=== PATIENT | male | born 1955 | race Caucasian/White ===

== ENCOUNTER 2024-03-19 09:12 | Inpatient (IN) | payer MEDICARE, MEDICAID, OTHER ==
[2024-03-19] MEDS ORDERED: Boostrix 0.5 ML (Tdap) VIAL (>/=7 yrs of age) ONE ×2 (09:20→10:19)
[2024-03-19] MEDS ORDERED: NOREPINEPHRINE 8 MG/250 ML-D5W 250 ML ONE (09:23)
[2024-03-19 09:39] LABS: #Basophils 0.12 10x3/uL (0.0-0.2); %Basophils 0.7 % (0.0-1.0); %Eosinophils 1.8 % (0.0-10.0); %Lymphocytes 11.9 % (21.0-51.0); %Monocytes 7.3 % (0.0-10.0); %Neutrophils 76.9 % (42.0-75.0); Hematocrit 33.1 % (42.0-52.0); Hemoglobin 10.7 g/dL (14.0-18.0); Mean Corpuscular HGB CONC 32.3 g/dL (32.0-36.0); Mean Corpuscular Hemoglobin 30.4 pg (27.0-31.0); Mean Platelet Volume 9.4 fL (7.4-10.4); Platelet Count 370 10x3/uL (130-400); RBC Distribution Width 17.2 % (11.5-14.5); Red Blood Cell (RBC) Count 3.52 mill/uL (4.70-6.10)
[2024-03-19 09:51] LABS: Bilirubin Negative (Negative); Blood, Urine Negative (Negative); Clarity Turbid (Clear); Glucose, Urine (Dipstick) Normal (Negative); Ketone, Urine Negative (Negative); Leukocyte 250 Leu/uL (Negative); Nitrite 2+ (Negative); Protein, Urine (Dipstick) 30 mg/dL (Neg-Trace); RBC/HPF 0-3 HPF (0-3); Specific Gravity, Urine 1.017 (1.002-1.036); Urobilinogen Normal mg/dL (Less than 2); pH, Urine 6.5 (5.0-9.0)
[2024-03-19 09:55] LABS: ALT (SGPT) 24 U/L (8-55); AST (SGOT) 38 U/L (5-34); Alkaline Phosphatase 73 U/L (40-110); Anion Gap 15 mmol/L (10-20); BUN (Urea Nitrogen) 21 mg/dL (8.4-25.7); Bilirubin, Total 0.5 mg/dL (0.2-1.2); Calc. Creatinine Clearance 0 mL/min (70-130); Calcium 9.2 mg/dL (7.8-10.44); Carbon Dioxide 21 mmol/L (23-31); Chloride 109 mmol/L (98-107); Estimated GFR 61; Globulin 3.7 g/dL (2.4-3.5); Glucose 164 mg/dL (80-115); Potassium 4.2 mmol/L (3.5-5.1); Protein, Total 6.7 g/dL (5.8-8.1); Sodium 141 mmol/L (136-145)
[2024-03-19 09:58] LABS: Prothrombin Time 12.8 sec (12.0-14.7)
[2024-03-19 10:00] LABS: PTT 22.6 sec (22.9-36.1)
[2024-03-19 10:06] LABS: Squamous Epithelial 0-3 HPF (0-3); WBC/HPF 21-50 HPF (0-3)
[2024-03-19 10:07] LABS: Bacteria/HPF 3+ HPF (None Seen); Transitional Epithelial 0-3 HPF (None Seen)
[2024-03-19] MEDS ORDERED: Ondansetron PF 4 MG/2 ML Vial ONE (10:26)
[2024-03-19] MEDS ORDERED: Morphine 4 MG/ML VIAL ONE (10:26)
[2024-03-19] MEDS ORDERED: CEFAZOLIN 2 GM in Sodium Chloride 0.9% 100 ML IVPB SCH (10:30)
[2024-03-19] MEDS ORDERED: Ondansetron PF 4 MG/2 ML Vial IVP PRN (11:03)
[2024-03-19] MEDS ORDERED: Ipratropium/Albuterol 3 ML NEB NEB PRN (11:03)
[2024-03-19 12:14] VITALS: BMI 20.5
[2024-03-19] MEDS ORDERED: Iopamidol-370 76% 500 ML MDV (1 ML CHARGE) ONE (13:22)
[2024-03-19] MEDS ORDERED: fentaNYL PF 100 MCG/2 ML SYRINGE ONE (16:48)
[2024-03-19] MEDS ORDERED: PROPOFOL 20 ML ONE (16:48)
[2024-03-19] MEDS ORDERED: Lidocaine 1% PF 5 ML VIAL ONE (16:51)
[2024-03-19] MEDS ORDERED: SUCCINYLCHOLINE/SOD CL,ISO/PF 200 MG/10 ML SYRINGE FS ONE ×2 (16:59→17:40)
[2024-03-19] MEDS ORDERED: Sterile Water 20 ML ONE (17:49)
[2024-03-19] MEDS ORDERED: CEFAZOLIN 1 GM VIAL ONE (17:49)
[2024-03-19] MEDS ORDERED: PHENYLEPHRINE-NS 100 MCG/ML 10 ML SYRINGE ONE ×2 (17:53→19:57)
[2024-03-19] MEDS ORDERED: Rocuronium Bromide 10 MG/ML (10ML VIAL) ONE (17:56)
[2024-03-19] MEDS ORDERED: NEOSTIGMINE 3 MG/3 ML SYR 3 MG/3 ML SYRINGE ONE (19:30)
[2024-03-19] MEDS ORDERED: Glycopyrrolate 0.2 MG/ML 5 ML SYRINGE ONE (19:30)
[2024-03-19] MEDS ORDERED: fentaNYL 50 mcg/mL 1 mL Vial ONE ×3 (19:34→21:33)
[2024-03-19] MEDS ORDERED: HYDROmorphone 2 MG/ML VIAL ONE (19:57)
[2024-03-19] MEDS: Sodium Chloride 0.9% 1,000 ML IV SCH (23:00)
[2024-03-19] MEDS ORDERED: Electrolyte Replacement Protocol 1 EACH FS PRN (23:01)
[2024-03-19] MEDS: Acetaminophen 325 MG TAB PO SCH (23:57)
[2024-03-20] MEDS: Ketorolac Tromethamine 30 MG (1 mL) VIAL IVP SCH ×2 (00:03→14:12)
[2024-03-20] MEDS: Thiamine HCl 200 MG/2 ML VIAL SLOW IVP SCH ×3 (00:05→22:23)
[2024-03-20] MEDS: Famotidine/PF 20 mg/2ml Vial SLOW IVP SCH (00:24)
[2024-03-20] MEDS: Ipratropium/Albuterol 3 ML NEB NEB SCH ×2 (02:27→10:27)
[2024-03-20] MEDS: CEFAZOLIN 2 GM in Sodium Chloride 0.9% 100 ML IVPB SCH (02:43)
[2024-03-20] MEDS: Mometasone 200 MCG/Formoterol 5 MCG 120 PUFF INHALER INH SCH (06:56)
[2024-03-20] MEDS ORDERED: traMADol HCl 50 MG TAB PO PRN (07:13)
[2024-03-20 07:14] LABS: Phosphorus 3.4 mg/dL (2.3-4.7)
[2024-03-20 07:25] LABS: Anion Gap 12 mmol/L (10-20); BUN (Urea Nitrogen) 24 mg/dL (8.4-25.7); Calc. Creatinine Clearance 45 mL/min (70-130); Calcium 7.8 mg/dL (7.8-10.44); Carbon Dioxide 22 mmol/L (23-31); Chloride 117 mmol/L (98-107); Estimated GFR 54; Glucose 83 mg/dL (80-115); Magnesium 1.6 mg/dL (1.6-2.6); Potassium 4.8 mmol/L (3.5-5.1); Sodium 146 mmol/L (136-145)
[2024-03-20] MEDS: Enoxaparin 40 MG (0.4 mL) SYRINGE SC SCH (07:41)
[2024-03-20] MEDS: Magnesium 2 GM/50 ML(in water) 2 GM in Premix 1 BAG IVPB SCH (07:41)
[2024-03-20 07:46] LABS: #Basophils 0.05 10x3/uL (0.0-0.2); %Basophils 0.5 % (0.0-1.0); %Eosinophils 1.1 % (0.0-10.0); %Lymphocytes 20.9 % (21.0-51.0); %Monocytes 17.1 % (0.0-10.0); %Neutrophils 60.2 % (42.0-75.0); Hematocrit 22.8 % (42.0-52.0); Hemoglobin 7.1 g/dL (14.0-18.0); Mean Corpuscular HGB CONC 31.1 g/dL (32.0-36.0); Mean Corpuscular Hemoglobin 30.3 pg (27.0-31.0); Mean Corpuscular Volume 97.4 fL (78.0-98.0); Mean Platelet Volume 9.8 fL (7.4-10.4); Platelet Count 268 10x3/uL (130-400); RBC Distribution Width 17.4 % (11.5-14.5); Red Blood Cell (RBC) Count 2.34 mill/uL (4.70-6.10)
[2024-03-20 08:47] LABS: #Basophils 0.04 10x3/uL (0.0-0.2); %Basophils 0.4 % (0.0-1.0); %Eosinophils 0.9 % (0.0-10.0); %Lymphocytes 20.2 % (21.0-51.0); %Neutrophils 60.2 % (42.0-75.0); Hematocrit 22.9 % (42.0-52.0); Mean Corpuscular HGB CONC 30.6 g/dL (32.0-36.0); Mean Corpuscular Hemoglobin 31.7 pg (27.0-31.0); Mean Corpuscular Volume 103.6 fL (78.0-98.0); Mean Platelet Volume 9.9 fL (7.4-10.4); Platelet Count 255 10x3/uL (130-400); RBC Distribution Width 17.5 % (11.5-14.5); Red Blood Cell (RBC) Count 2.21 mill/uL (4.70-6.10)
[2024-03-20] MEDS: Morphine 2 MG/ML VIAL SLOW IVP PRN (09:23)
[2024-03-20] MEDS ORDERED: Ondansetron ODT 4 MG TAB PO PRN (09:41)
[2024-03-20] MEDS ORDERED: Lorazepam 1 MG TAB PO PRN (09:41)
[2024-03-20] MEDS ORDERED: Electrolyte Replacement Protocol 1 EACH FS SCH (09:45)
[2024-03-20] MEDS ORDERED: Electrolyte Replacement Protocol FS PRN (11:30)
[2024-03-20] MEDS: Lorazepam 2 MG/ML VIAL IM PRN (11:46)
[2024-03-20] MEDS ORDERED: Ipratropium/Albuterol 3 ML NEB NEB SCH (12:30)
[2024-03-20] MEDS: Pregabalin 50 MG CAP PO SCH (12:35)
[2024-03-20] MEDS: Sodium Chloride 0.9% 1,000 ML IV SCH (12:35)
[2024-03-20] MEDS: Lorazepam 1 MG TAB PO SCH (12:35)
[2024-03-20] MEDS: Famotidine 20 MG TAB PO SCH (12:35)
[2024-03-20] MEDS: traMADol HCl 50 MG TAB PO SCH (14:45)
[2024-03-20] MEDS: LevoFLOXacin 500 mg/D5W 500 MG in Premix 1 BAG IVPB SCH (14:46)
[2024-03-20] MEDS ORDERED: diphenhydrAMINE 50 MG/ML VIAL IM PRN (14:51)
[2024-03-20] MEDS ORDERED: HYDROmorphone/PF 10 MG in Sodium Chloride 0.9% 99 ML IV PRN (14:51)
[2024-03-20] MEDS ORDERED: Naloxone HCl 0.4 mg/ml Vial IV PRN (14:51)
[2024-03-20] MEDS ORDERED: Promethazine HCl 25 MG/ML VIAL IM PRN (14:51)
[2024-03-20] MEDS ORDERED: Ondansetron PF 4 MG/2 ML Vial IVP PRN (14:51)
[2024-03-20] MEDS ORDERED: Communication Order-Pharmacy FS SCH (15:00)
[2024-03-20] MEDS ORDERED: HYDROmorphone/PF 10 MG in Sodium Chloride 0.9% 99 ML IVPB PRN (15:00)
[2024-03-20] MEDS: Lidocaine 4% Patch TD SCH (15:49)
[2024-03-20] MEDS: Morphine 4 MG/ML VIAL SLOW IVP SCH (17:48)
[2024-03-20] MEDS ORDERED: Lorazepam 2 MG/ML VIAL SLOW IVP PRN (18:00)
[2024-03-20] MEDS: Transdermal Patch Removal TOP SCH (23:56)
[2024-03-21] MEDS: Lorazepam 2 MG/ML VIAL IM PRN (03:38)
[2024-03-21 06:06] LABS: #Basophils 0.06 10x3/uL (0.0-0.2); %Basophils 0.4 % (0.0-1.0); %Eosinophils 0.4 % (0.0-10.0); %Lymphocytes 16.8 % (21.0-51.0); %Monocytes 14.6 % (0.0-10.0); %Neutrophils 67.4 % (42.0-75.0); Hematocrit 21.6 % (42.0-52.0); Mean Corpuscular HGB CONC 32.4 g/dL (32.0-36.0); Mean Corpuscular Hemoglobin 30.8 pg (27.0-31.0); Mean Corpuscular Volume 95.2 fL (78.0-98.0); Mean Platelet Volume 10.3 fL (7.4-10.4); Platelet Count 215 10x3/uL (130-400); RBC Distribution Width 18.6 % (11.5-14.5); Red Blood Cell (RBC) Count 2.27 mill/uL (4.70-6.10)
[2024-03-21 06:24] LABS: Anion Gap 13 mmol/L (10-20); BUN (Urea Nitrogen) 30 mg/dL (8.4-25.7); Calc. Creatinine Clearance 46 mL/min (70-130); Calcium 7.4 mg/dL (7.8-10.44); Carbon Dioxide 18 mmol/L (23-31); Chloride 118 mmol/L (98-107); Estimated GFR 55; Glucose 116 mg/dL (80-115); Magnesium 2.1 mg/dL (1.6-2.6); Potassium 4.6 mmol/L (3.5-5.1); Sodium 144 mmol/L (136-145)
[2024-03-21] MEDS ORDERED: Folic Acid 5 MG/ML MDV SC SCH (09:00)
[2024-03-21] MEDS ORDERED: Folic Acid 1 MG TAB PO SCH (09:00)
[2024-03-21] MEDS ORDERED: Lorazepam 1 MG TAB PO PRN (09:41)
[2024-03-21] MEDS: Multivit, Therapeutic 1 TAB PO SCH (09:42)
[2024-03-21] MEDS: Folic Acid 0.4 MG in Syringe 0 ML SC SCH (09:49)
[2024-03-21] MEDS ORDERED: traMADol HCl 50 MG TAB PO PRN (12:01)
[2024-03-21] MEDS: LevoFLOXacin 500 mg/D5W 500 MG in Premix 1 BAG IVPB SCH (12:04)
[2024-03-21] MEDS: Nicotine 14 MG PATCH TD SCH (16:07)
[2024-03-21] MEDS ORDERED: traMADol HCl 50 MG TAB PO SCH (18:00)
[2024-03-21] MEDS: traMADol HCl 50 MG TAB PO SCH (18:50)
[2024-03-21] MEDS: Sodium Chloride 0.9% 1,000 ML IV SCH (18:51)
[2024-03-21 19:13] LABS: Amphetamine Detected (NotDetected); Barbiturates Screen Not Detected (NotDetected); Benzodiazepine Screen Detected (NotDetected); Cocaine Metabolite Screen Not Detected (NotDetected); Methadone Not Detected (NotDetected); Methamphetamine Detected (NotDetected); Opiate Screen Detected (NotDetected); Oxycodone Screen Not Detected (NotDetected); Phencyclidine (PCP) Not Detected (NotDetected); THC/Cannabinoid Screen Not Detected (NotDetected); Tricyclic Screen Not Detected (NotDetected)
[2024-03-21] MEDS: ALPRAZolam 0.25 MG TAB PO SCH (20:13)
[2024-03-22] MEDS: traMADol HCl 50 MG TAB PO SCH (05:39)
[2024-03-22 07:13] LABS: Hematocrit 25.2 % (42.0-52.0); Hemoglobin 8.7 g/dL (14.0-18.0); Platelet Count 220 10x3/uL (130-400)
[2024-03-22 08:02] LABS: Anion Gap 15 mmol/L (10-20); BUN (Urea Nitrogen) 26 mg/dL (8.4-25.7); Calc. Creatinine Clearance 64 mL/min (70-130); Calcium 8.4 mg/dL (7.8-10.44); Carbon Dioxide 17 mmol/L (23-31); Chloride 119 mmol/L (98-107); Estimated GFR 82; Glucose 106 mg/dL (80-115); Potassium 4.3 mmol/L (3.5-5.1); Sodium 147 mmol/L (136-145)
[2024-03-22] MEDS: Folic Acid 1 MG TAB PO SCH (09:27)
[2024-03-22] MEDS ORDERED: Lorazepam 1 MG TAB PO PRN (09:41)
[2024-03-22] MEDS ORDERED: Lorazepam 0.5 MG TAB PO SCH (09:45)
[2024-03-22] MEDS ORDERED: Labetalol HCl 100 MG/20 ML VIAL SLOW IVP PRN (13:19)
[2024-03-22] MEDS: Morphine 2 MG/ML VIAL SLOW IVP PRN (13:58)
[2024-03-22] MEDS: Dextrose 5% in Water 1,000 ML IV SCH (13:58)
[2024-03-22] MEDS: Famotidine 20 MG TAB PO SCH (21:31)
[2024-03-22] MEDS: Thiamine 100 MG TAB PO SCH (21:31)
[2024-03-23] MEDS: hydrALAZINE 20 MG/ML VIAL SLOW IVP PRN (06:09)
[2024-03-23 07:01] LABS: #Basophils 0.06 10x3/uL (0.0-0.2); %Basophils 0.4 % (0.0-1.0); %Eosinophils 4.6 % (0.0-10.0); %Monocytes 12.1 % (0.0-10.0); %Neutrophils 68.6 % (42.0-75.0); Hematocrit 24.9 % (42.0-52.0); Hemoglobin 8.5 g/dL (14.0-18.0); Mean Corpuscular HGB CONC 34.1 g/dL (32.0-36.0); Mean Corpuscular Hemoglobin 29.8 pg (27.0-31.0); Mean Corpuscular Volume 87.4 fL (78.0-98.0); Mean Platelet Volume 10.7 fL (7.4-10.4); Platelet Count 298 10x3/uL (130-400); RBC Distribution Width 17.5 % (11.5-14.5); Red Blood Cell (RBC) Count 2.85 mill/uL (4.70-6.10)
[2024-03-23 07:23] LABS: Anion Gap 12 mmol/L (10-20); BUN (Urea Nitrogen) 17 mg/dL (8.4-25.7); Calc. Creatinine Clearance 80 mL/min (70-130); Calcium 8.2 mg/dL (7.8-10.44); Carbon Dioxide 21 mmol/L (23-31); Chloride 111 mmol/L (98-107); Estimated GFR 97; Glucose 126 mg/dL (80-115); Potassium 3.7 mmol/L (3.5-5.1); Sodium 140 mmol/L (136-145)
[2024-03-23] MEDS: Lisinopril 20 MG TAB PO SCH (09:24)
[2024-03-23] MEDS: Hydrochlorothiazide 25 MG TAB PO SCH (09:24)
[2024-03-23] MEDS: Enoxaparin 40 MG (0.4 mL) SYRINGE SC SCH (09:27)
[2024-03-23] MEDS ORDERED: Lorazepam 0.5 MG TAB PO PRN (09:41)
[2024-03-23] MEDS ORDERED: Thiamine 100 MG TAB PO SCH (09:45)
[2024-03-23] MEDS: Furosemide 40 MG (4 mL) VIAL SLOW IVP SCH ×2 (09:52→18:18)
[2024-03-23] MEDS ORDERED: Morphine 2 MG/ML VIAL SLOW IVP PRN (13:06)
[2024-03-23 17:27] LABS: Anion Gap 13 mmol/L (10-20); BUN (Urea Nitrogen) 17 mg/dL (8.4-25.7); Calc. Creatinine Clearance 81 mL/min (70-130); Calcium 8.4 mg/dL (7.8-10.44); Carbon Dioxide 20 mmol/L (23-31); Chloride 109 mmol/L (98-107); Estimated GFR 97; Glucose 115 mg/dL (80-115); Potassium 4.1 mmol/L (3.5-5.1); Sodium 138 mmol/L (136-145)
[2024-03-23 17:28] LABS: Magnesium 1.6 mg/dL (1.6-2.6); Phosphorus 2.4 mg/dL (2.3-4.7)
[2024-03-23] MEDS: Magnesium Sulfate In Water 4 GM in Premix 1 BAG IVPB SCH (18:13)
[2024-03-23] MEDS: Potassium Chloride 20 MEQ TAB PO SCH (18:18)
[2024-03-23] MEDS ORDERED: Magnesium 2 GM/50 ML(in water) 4 GM in Premix 1 BAG IVPB SCH (19:00)
[2024-03-23] MEDS ORDERED: Furosemide 40 MG (4 mL) VIAL SLOW IVP SCH (19:00)
[2024-03-23] MEDS: Tamsulosin HCl 0.4 MG CAP PO SCH (21:55)
[2024-03-23] MEDS: diphenhydrAMINE 25 MG CAP PO PRN (23:48)
[2024-03-24 05:09] LABS: #Basophils 0.08 10x3/uL (0.0-0.2); %Basophils 0.5 % (0.0-1.0); %Eosinophils 4.6 % (0.0-10.0); %Lymphocytes 20.1 % (21.0-51.0); %Monocytes 13.5 % (0.0-10.0); %Neutrophils 58.9 % (42.0-75.0); Hematocrit 26.3 % (42.0-52.0); Hemoglobin 8.7 g/dL (14.0-18.0); Mean Corpuscular HGB CONC 33.1 g/dL (32.0-36.0); Mean Corpuscular Hemoglobin 30.4 pg (27.0-31.0); Mean Platelet Volume 10.2 fL (7.4-10.4); Platelet Count 363 10x3/uL (130-400); RBC Distribution Width 17.4 % (11.5-14.5); Red Blood Cell (RBC) Count 2.86 mill/uL (4.70-6.10)
[2024-03-24 05:30] LABS: Anion Gap 13 mmol/L (10-20); BUN (Urea Nitrogen) 21 mg/dL (8.4-25.7); Calc. Creatinine Clearance 66 mL/min (70-130); Calcium 8.5 mg/dL (7.8-10.44); Carbon Dioxide 21 mmol/L (23-31); Chloride 107 mmol/L (98-107); Estimated GFR 86; Glucose 95 mg/dL (80-115); Magnesium 2.4 mg/dL (1.6-2.6); Potassium 4.1 mmol/L (3.5-5.1); Sodium 137 mmol/L (136-145)
[2024-03-24] MEDS: Lisinopril 20 MG TAB PO SCH (08:57)
[2024-03-24] MEDS: LevoFLOXacin 750 MG TAB PO SCH (11:58)
[2024-03-24 16:14] LABS: QuantiFERON-TB Gold Plus Negative (Negative)
[2024-03-25] MEDS: Polyethylene Glycol 3350 17 GM Packet PO SCH (09:43)
[2024-03-25] MEDS: Senokot S 8.6-50 MG TAB PO SCH (09:44)
[2024-03-25] MEDS ORDERED: Iopamidol-370 76% 500 ML MDV (1 ML CHARGE) ONE (11:09)
[2024-03-25] MEDS: Ibuprofen 600 MG TAB PO PRN (20:19)
[2024-03-25] MEDS: Lisinopril 5 MG TAB PO SCH (20:20)
[2024-03-25] MEDS: ALPRAZolam 0.25 MG TAB PO SCH (20:20)
[2024-03-26] MEDS: Ipratropium/Albuterol 3 ML NEB NEB PRN (21:11)
[2024-03-27] MEDS: diphenhydrAMINE 50 MG/ML VIAL IVP PRN (01:57)
[2024-03-27] MEDS: Metoprolol Tartrate 25 MG TAB PO SCH (08:51)
[2024-03-28 06:08] LABS: Hematocrit 29.4 % (42.0-52.0); Hemoglobin 9.6 g/dL (14.0-18.0); Mean Corpuscular HGB CONC 32.7 g/dL (32.0-36.0); Mean Corpuscular Hemoglobin 30.3 pg (27.0-31.0); Mean Corpuscular Volume 92.7 fL (78.0-98.0); Mean Platelet Volume 9.9 fL (7.4-10.4); Platelet Count 666 10x3/uL (130-400); RBC Distribution Width 17.4 % (11.5-14.5); Red Blood Cell (RBC) Count 3.17 mill/uL (4.70-6.10)
[2024-03-28 06:28] LABS: Anion Gap 17 mmol/L (10-20); BUN (Urea Nitrogen) 50 mg/dL (8.4-25.7); Calc. Creatinine Clearance 58 mL/min (70-130); Calcium 9.2 mg/dL (7.8-10.44); Carbon Dioxide 21 mmol/L (23-31); Chloride 108 mmol/L (98-107); Estimated GFR 69; Glucose 101 mg/dL (80-115); Potassium 4.6 mmol/L (3.5-5.1); Sodium 141 mmol/L (136-145)
[2024-03-28 06:33] LABS: Anisocytosis SLIGHT = 6-15 cells HPF (0-5); Eosinophils 7 % (0-10); Lymphocytes 5 % (21-51); Monocytes 17 % (0-10); Neutrophil 70 % (42-75); Platelet Adequacy Comment Platelets Increased; Polychromasia SLIGHT = 2-3 cells HPF (0-2)
[2024-03-28] MEDS ORDERED: LevoFLOXacin 750 MG TAB PO SCH (06:45)
[2024-03-28] MEDS: Dextrose 5 %-0.45 % NaCl 1,000 ML IV SCH (08:48)
[2024-03-28] MEDS ORDERED: Bisacodyl 10 MG SUPP PR PRN (12:40)
[2024-03-28] MEDS: LevoFLOXacin 500 MG TAB PO SCH (14:32)
[2024-03-28] MEDS: Lactulose 20 GM (30 mL) UDCUP PO SCH (14:45)
[2024-03-28 16:24] LABS: Bacteria/HPF None Seen HPF (None Seen); Bilirubin Negative (Negative); Blood, Urine Negative (Negative); CAUTI Indications for Culture Immunosuppressed; Clarity Clear (Clear); Glucose, Urine (Dipstick) Normal (Negative); Ketone, Urine Negative (Negative); Leukocyte Negative Leu/uL (Negative); Nitrite Negative (Negative); Protein, Urine (Dipstick) Negative (Neg-Trace); RBC/HPF None Seen HPF (0-3); Squamous Epithelial 0-3 HPF (0-3); Urobilinogen Normal mg/dL (Less than 2); WBC/HPF 0-3 HPF (0-3); pH, Urine 5.5 (5.0-9.0)
[2024-03-28 16:39] LABS: Urine Culture Reflex Yes Yes
[2024-03-29 07:25] LABS: #Basophils 0.12 10x3/uL (0.0-0.2); %Basophils 0.6 % (0.0-1.0); %Eosinophils 3.6 % (0.0-10.0); %Lymphocytes 10.8 % (21.0-51.0); %Monocytes 14.7 % (0.0-10.0); %Neutrophils 66.2 % (42.0-75.0); Hematocrit 30.7 % (42.0-52.0); Hemoglobin 9.6 g/dL (14.0-18.0); Mean Corpuscular HGB CONC 31.3 g/dL (32.0-36.0); Mean Corpuscular Hemoglobin 30.9 pg (27.0-31.0); Mean Corpuscular Volume 98.7 fL (78.0-98.0); Mean Platelet Volume 9.7 fL (7.4-10.4); Platelet Count 626 10x3/uL (130-400); RBC Distribution Width 17.7 % (11.5-14.5); Red Blood Cell (RBC) Count 3.11 mill/uL (4.70-6.10)
[2024-03-29 07:43] LABS: ALT (SGPT) 11 U/L (8-55); AST (SGOT) 29 U/L (5-34); Albumin 2.4 g/dL (3.4-4.8); Alkaline Phosphatase 85 U/L (40-110); Anion Gap 14 mmol/L (10-20); BUN (Urea Nitrogen) 41 mg/dL (8.4-25.7); Bilirubin, Total 0.9 mg/dL (0.2-1.2); Calc. Creatinine Clearance 74 mL/min (70-130); Carbon Dioxide 20 mmol/L (23-31); Chloride 108 mmol/L (98-107); Estimated GFR 94; Globulin 3.9 g/dL (2.4-3.5); Glucose 110 mg/dL (80-115); Potassium 4.1 mmol/L (3.5-5.1); Protein, Total 6.3 g/dL (5.8-8.1); Sodium 138 mmol/L (136-145)
[2024-03-30 06:08] LABS: #Basophils 0.12 10x3/uL (0.0-0.2); %Basophils 0.5 % (0.0-1.0); %Eosinophils 3.8 % (0.0-10.0); %Lymphocytes 12.2 % (21.0-51.0); %Monocytes 13.6 % (0.0-10.0); %Neutrophils 65.9 % (42.0-75.0); Hematocrit 30.1 % (42.0-52.0); Hemoglobin 9.8 g/dL (14.0-18.0); Mean Corpuscular HGB CONC 32.6 g/dL (32.0-36.0); Mean Corpuscular Hemoglobin 31.2 pg (27.0-31.0); Mean Corpuscular Volume 95.9 fL (78.0-98.0); Mean Platelet Volume 9.6 fL (7.4-10.4); Platelet Count 673 10x3/uL (130-400); RBC Distribution Width 17.6 % (11.5-14.5); Red Blood Cell (RBC) Count 3.14 mill/uL (4.70-6.10)
[2024-03-30 06:30] LABS: ALT (SGPT) 15 U/L (8-55); AST (SGOT) 28 U/L (5-34); Albumin 2.4 g/dL (3.4-4.8); Alkaline Phosphatase 95 U/L (40-110); Anion Gap 17 mmol/L (10-20); BUN (Urea Nitrogen) 40 mg/dL (8.4-25.7); Bilirubin, Total 0.9 mg/dL (0.2-1.2); Calc. Creatinine Clearance 69 mL/min (70-130); Carbon Dioxide 22 mmol/L (23-31); Chloride 104 mmol/L (98-107); Estimated GFR 86; Globulin 4.2 g/dL (2.4-3.5); Glucose 115 mg/dL (80-115); Protein, Total 6.6 g/dL (5.8-8.1); Sodium 139 mmol/L (136-145)
[2024-03-30] MEDS ORDERED: Naloxone HCl 0.4 mg/ml Vial IV PRN (15:06)
[2024-03-31 07:22] LABS: #Basophils 0.18 10x3/uL (0.0-0.2); %Basophils 0.8 % (0.0-1.0); %Eosinophils 4.4 % (0.0-10.0); %Monocytes 11.6 % (0.0-10.0); %Neutrophils 67.9 % (42.0-75.0); Hematocrit 32.8 % (42.0-52.0); Hemoglobin 10.5 g/dL (14.0-18.0); Mean Corpuscular Hemoglobin 31.2 pg (27.0-31.0); Mean Corpuscular Volume 97.3 fL (78.0-98.0); Mean Platelet Volume 9.5 fL (7.4-10.4); Platelet Count 696 10x3/uL (130-400); RBC Distribution Width 17.6 % (11.5-14.5); Red Blood Cell (RBC) Count 3.37 mill/uL (4.70-6.10)
[2024-03-31] MEDS: Lidocaine 1% (PF) 30 ML VIAL ONE (11:10)
[2024-03-31 12:39] LABS: Fluid, pH - Pleural Fld 7.359 (7.60 - 7.66)
[2024-03-31 12:46] LABS: Fluid, Triglycerides 99 mg/dL (Not Available); Pleural Fluid, Amylase Less than 30 U/L (Not Available); Pleural Fluid, Glucose 78 mg/dL; Pleural Fluid, Protein 5.1 g/dL
[2024-03-31 12:55] LABS: Pleural Fluid, LDH 2153 U/L (Not Available)
[2024-03-31 13:36] LABS: RBC Count-Automated (BF) Greater than 890000 /cu.mm; WBC/Nucleated-Auto (BF) 5287 /cu.mm
[2024-03-31 13:42] LABS: BF Color Red; Body Fluid Source Pleural Fluid; Clarity Cloudy/Turbid (Clear); Tube # EDTA
[2024-03-31 14:12] VITALS: BMI 22.1
[2024-03-31 15:28] LABS: BF Segmented Neutrophils 40 %; Cell Count Non Hematic 24 %; Eosinophils 5 %; Lymphocytes 30 %
[2024-04-01 05:35] LABS: #Basophils 0.15 10x3/uL (0.0-0.2); %Basophils 0.6 % (0.0-1.0); %Eosinophils 5.2 % (0.0-10.0); %Lymphocytes 13.6 % (21.0-51.0); %Monocytes 9.8 % (0.0-10.0); %Neutrophils 67.4 % (42.0-75.0); Hematocrit 33.9 % (42.0-52.0); Hemoglobin 10.7 g/dL (14.0-18.0); Mean Corpuscular HGB CONC 31.6 g/dL (32.0-36.0); Mean Corpuscular Hemoglobin 30.7 pg (27.0-31.0); Mean Corpuscular Volume 97.4 fL (78.0-98.0); Mean Platelet Volume 9.7 fL (7.4-10.4); Platelet Count 746 10x3/uL (130-400); RBC Distribution Width 17.5 % (11.5-14.5); Red Blood Cell (RBC) Count 3.48 mill/uL (4.70-6.10)
[2024-04-01 05:53] LABS: Anion Gap 14 mmol/L (10-20); BUN (Urea Nitrogen) 49 mg/dL (8.4-25.7); Calc. Creatinine Clearance 60 mL/min (70-130); Calcium 9.1 mg/dL (7.8-10.44); Carbon Dioxide 23 mmol/L (23-31); Chloride 107 mmol/L (98-107); Estimated GFR 72; Glucose 111 mg/dL (80-115); Potassium 4.2 mmol/L (3.5-5.1); Sodium 140 mmol/L (136-145)
[2024-04-01] MEDS ORDERED: Iopamidol-370 76% 500 ML MDV (1 ML CHARGE) ONE (10:52)
[2024-04-02 07:15] LABS: #Basophils 0.21 10x3/uL (0.0-0.2); %Basophils 0.9 % (0.0-1.0); %Lymphocytes 12.8 % (21.0-51.0); %Monocytes 8.5 % (0.0-10.0); %Neutrophils 70.6 % (42.0-75.0); Hematocrit 33.8 % (42.0-52.0); Hemoglobin 10.8 g/dL (14.0-18.0); Mean Corpuscular Hemoglobin 30.4 pg (27.0-31.0); Mean Corpuscular Volume 95.2 fL (78.0-98.0); Mean Platelet Volume 9.6 fL (7.4-10.4); Platelet Count 769 10x3/uL (130-400); RBC Distribution Width 17.3 % (11.5-14.5); Red Blood Cell (RBC) Count 3.55 mill/uL (4.70-6.10)
[2024-04-02 07:40] LABS: Anion Gap 13 mmol/L (10-20); BUN (Urea Nitrogen) 42 mg/dL (8.4-25.7); Calc. Creatinine Clearance 65 mL/min (70-130); Calcium 9.4 mg/dL (7.8-10.44); Carbon Dioxide 23 mmol/L (23-31); Chloride 106 mmol/L (98-107); Estimated GFR 80; Glucose 104 mg/dL (80-115); Potassium 4.4 mmol/L (3.5-5.1); Sodium 138 mmol/L (136-145)
[2024-04-02 13:45] VITALS: BP 136/99; TEMP 97.9
== END 2024-04-02 13:51 | DRG 958 ==
LOC: ERS 09:12 → ERHOLD 11:03 → CCU 22:21 → SJJU 03-20 10:59 → SURG A 03-20 11:58
PROVIDERS: ADMIT Specialist; ATTEND Specialist
PROC: 0T9B70Z Drainage of Bladder with Drainage Device, Via Natural or Artificial Opening (ICD-10-PCS; 2024-03-19)
PROC: 0HQ0XZZ Repair Scalp Skin, External Approach (ICD-10-PCS; 2024-03-19)
PROC: 0W9B3ZZ Drainage of Left Pleural Cavity, Percutaneous Approach (ICD-10-PCS; 2024-03-19)
PROC: 3E033XZ Introduction of Vasopressor into Peripheral Vein, Percutaneous Approach (ICD-10-PCS; 2024-03-19)
PROC: 30233N1 Transfusion of Nonautologous Red Blood Cells into Peripheral Vein, Percutaneous Approach (ICD-10-PCS; 2024-03-20)
PROC: 0PSL04Z Reposition Left Ulna with Internal Fixation Device, Open Approach (ICD-10-PCS; principal; 2024-03-21)
PROC: 0JQH0ZZ Repair Left Lower Arm Subcutaneous Tissue and Fascia, Open Approach (ICD-10-PCS; 2024-03-21)
PROC: 0JQG0ZZ Repair Right Lower Arm Subcutaneous Tissue and Fascia, Open Approach (ICD-10-PCS; 2024-03-21)
DX: S52.202B Unspecified fracture of shaft of left ulna, initial encounter for open fracture type I or II (principal); D62 Acute posthemorrhagic anemia; S27.0XXA Traumatic pneumothorax, initial encounter; J90 Pleural effusion, not elsewhere classified; S22.42XA Multiple fractures of ribs, left side, initial encounter for closed fracture; S42.301A Unspecified fracture of shaft of humerus, right arm, initial encounter for closed fracture; N39.0 Urinary tract infection, site not specified; N17.9 Acute kidney failure, unspecified; J98.11 Atelectasis; I69.354 Hemiplegia and hemiparesis following cerebral infarction affecting left non-dominant side; S30.810A Abrasion of lower back and pelvis, initial encounter; F17.210 Nicotine dependence, cigarettes, uncomplicated; S01.01XA Laceration without foreign body of scalp, initial encounter; J43.9 Emphysema, unspecified; K40.90 Unilateral inguinal hernia, without obstruction or gangrene, not specified as recurrent; S62.646A Nondisplaced fracture of proximal phalanx of right little finger, initial encounter for closed fracture; I10 Essential (primary) hypertension; I95.9 Hypotension, unspecified; B96.89 Other specified bacterial agents as the cause of diseases classified elsewhere; F10.10 Alcohol abuse, uncomplicated; D72.829 Elevated white blood cell count, unspecified; J44.9 Chronic obstructive pulmonary disease, unspecified; F19.10 Other psychoactive substance abuse, uncomplicated; V19.9XXA Pedal cyclist (driver) (passenger) injured in unspecified traffic accident, initial encounter; Z71.6 Tobacco abuse counseling; Z90.49 Acquired absence of other specified parts of digestive tract; Z71.41 Alcohol abuse counseling and surveillance of alcoholic; Z71.51 Drug abuse counseling and surveillance of drug abuser; I69.322 Dysarthria following cerebral infarction; R53.81 Other malaise
CPT/HCPCS: 36415; 36416; 36430; 51702; 70450; 70486; 71045; 71046; 71260; 71275; 72125; 72170; 74177; 80048; 80053; 80306; 80307; 81001; 82150; 82945; 83605; 83615; 83735; 83880; 83986; 84100; 84145; 84157; 84478; 85014; 85018; 85025; 85049; 85060; 85610; 85730; 86480; 86850; 86900; 86901; 87040; 87077; 87081; 87086; 87116; 87186; 87206; 88112; 88305; 89051; 90471; 90715; 93005; 93010; 93306; 93970; 94640; 96361; 96374; 96375; 97139; C1713; C1874; G0390; J0360; J0690; J1170; J1200; J1650; J1885; J1940; J1956; J2001; J2060; J2270; J2272; J2405; J2704; J3010; J3411; J3475; J3490; J7042; J7050; J7070; J7620; P9016; P9040; Q9967